=== PATIENT | male | born 1940 | race American Indian/Alaskan Native ===

== ENCOUNTER 2017-12-13 10:01 | Outpatient (CLI) | payer MEDICARE ==
--- NOTE | 2017-12-26 10:31 | Vascular Lab Report ---
CAROTID DUPLEX STUDY: RIGHT PSVEDV CCA PROX:[id number] CCA DIST:8527 ICA PROX:8219 ICA MID:6627 ICA DIST:7731 ECA: 78 VERT: 51 22 LEFT PSVEDV CCA PROX:[id number] CCA DIST:8224 ICA PROX:8014 ICA MID:7126 ICA DIST:6426 ECA: 78 VERT: 54 20 REASON FOR EXAM: Vertigo. COMMENTS ON THE RIGHT: Doppler frequency analysis is consistent with 16 to 49 percent diameter reduction of the internal carotid artery. A moderate amount of eccentric plaque is seen. The common carotid artery is patent. The external carotid artery is patent. The vertebral artery has antegrade flow. COMMENTS ON THE LEFT: Doppler frequency analysis is consistent with 16 to 49 percent diameter reduction of the internal carotid artery. A small amount of pplaque is seen. The common carotid artery is patent. The external carotid artery is patent. The vertebral artery has antegrade flow. IMPRESSION: Less than 50% diameter reduction in the internal carotid arteries bilaterally. Recommend repat carotid duplpex in 12 months.
== END 2017-12-13 10:02 | disposition home or self-care (01) ==
LOC: VAS 10:01
DX: I65.23 Occlusion and stenosis of bilateral carotid arteries (principal); R42 Dizziness and giddiness; I10 Essential (primary) hypertension
CPT/HCPCS: 93880